=== PATIENT | female | born 1960 | race Caucasian/White ===

== ENCOUNTER → 2017-06-18 | Outpatient (CLI) | payer OTHER ==
[~2017-06-18] MED LIST: ASPI1TAB69 PO; LANTUS2P SQ; LISI-519 PO; METF1000 PO; PERI8.6T PO; VITA2000 PO; [UNRECOGNIZED DRUG - CODE]
--- NOTE | 2017-06-18 14:16 | RADRPT ---
EXAM DATE/TIME: 06/18/2017 11:46 [place] COMPARISON: No previous studies available for comparison. INDICATIONS : Fall, left wrist pain. MEDICAL HISTORY : None. SURGICAL HISTORY : None. ENCOUNTER: Initial ACUITY: 3 months PAIN SCORE: 4/10 LOCATION: Left lateral wrist FINDINGS: 3 views of left wrist. Moderate sized thumb carpometacarpal joint osteophytes. Small scaphoid trapezi um trapezoid joint osteophytes. Bone alignment within normal limits. No evidence of fracture. CONCLUSION: No evidence of fracture. Marques Burch MD on June 18, 2017 at 14:14 Board Certified Radiologist. This report was verified electronically.
== END ==
LOC: HRAD 11:32
PROVIDERS: ATTEND Family Medicine
DX: M25.532 Pain in left wrist (principal)
CPT/HCPCS: 73110